=== PATIENT | male | born 1975 | race Caucasian/White ===

== ENCOUNTER 2017-01-28 12:08 | Emergency (ER) | payer OTHER ==
[~2017-01-28] VITALS: Ht 429.3 cm; Wt 135.7 kg
[~2017-01-28 12:08] MED LIST: FLOMAX0.4 MG PO; HIPREX1 GM PO; PERCOCET 5/31 TABLET PO; REGLAN10 MG PO; TORADOL10 MG PO; ZOFRAN ODT4 MG PO
[2017-01-28 12:49] LABS: MCH 27.1 PG (29.0-34.0); MCHC 32.9 G/DL (30.0-36.0); MCV 82.3 FL (86-99); MEAN PLAT.VOLUME 9.3 uM^3 (9.0-12.4); PLATELET COUNT 238 K/uL (156-360); RBC DIS.WIDTH-CV 13.1 % (11.8-14.6); RBC DIS.WIDTH-SD 38.7 % (39-53); RED BLOOD COUNT 5.83 M/uL (4.00-5.50); WHITE BLOOD COUNT 6.4 K/uL (4.1-10.2)
[2017-01-28 12:58] LABS: CHLORIDE 109 mEq/L (99-109); POTASSIUM 4.5 mEq/L (3.7-5.4); SODIUM 141 mEq/L (136-147)
[2017-01-28 13:00] LABS: GLUCOSE 142 mg/dL (70-99)
[2017-01-28 13:01] LABS: ANION GAP 11 MEQ/L (2-14)
[2017-01-28 13:04] LABS: GFR ESTIMATE (CALCULATED) > 59 mL/min/
[2017-01-28 13:05] LABS: UREA NITROGEN (BUN) 11 mg/dL (9-23)
[2017-01-28 13:16] LABS: ADD MIUA? YES; BILIRUBIN NEGATIVE; BLOOD MODERATE; COLOR YELLOW ((YELLOW)); GLUCOSE (STRIP) NEGATIVE; KETONES NEGATIVE; LEUKOCYTES NEGATIVE; NITRITE NEGATIVE; PROTEIN (STRIP) 30; UROBILINOGEN 0.2 MG/DL (0.2-1.0)
[2017-01-28 13:25] LABS: BACTERIA NONE SEEN /HPF; EPITHELIAL CELLS RARE /HPF; MUCUS TRACE /LPF; RED BLOOD CELLS TNTC /HPF (0-5); UCUL ADDED? NO; WHITE BLOOD CELLS 0-5 /HPF (0-5)
[2017-01-28] MEDS ORDERED: FLOMAX0.4 MG PO (15:13)
[2017-01-28] MEDS ORDERED: PHENERGAN25 MG PR (15:13)
[2017-01-28] MEDS ORDERED: NAPROSYN500 MG PO (15:13)
[2017-01-28] MEDS ORDERED: PERCOCET 5/31 TABLET PO (15:13)
[2017-01-28] MEDS ORDERED: ZOFRAN ODT4 MG PO (15:13)
[2017-01-28] MEDS ORDERED: STOOL SOFTENER250 MG PO (15:21)
[2017-01-28 16:24] VITALS: BP 145/95
== END 2017-01-28 16:27 | disposition home or self-care (01) ==
LOC: EME 12:08
DX: N13.2 Hydronephrosis with renal and ureteral calculous obstruction (principal); F17.200 Nicotine dependence, unspecified, uncomplicated
CPT/HCPCS: 74176; 80048; 81003; 85027; 99281; 99285; J1885; J2270; J2405; J7030